=== PATIENT | male | born 1990 | race Caucasian/White ===

== ENCOUNTER 2022-05-11 06:35 | Day surgery (SDC) | payer OTHER ==
[2022-05-11 07:20] VITALS: BMI 25.7
[2022-05-11] MEDS ORDERED: ONDANSETRON 4 MG/2 ML VIAL IVPUSH PRN (09:33)
[2022-05-11] MEDS ORDERED: oxyCODONE HCL 5 MG TABLET PO PRN (09:33)
[2022-05-11] MEDS ORDERED: PROMETHAZINE HCL 25 MG/1 ML VIAL IVPUSH PRN (09:33)
[2022-05-11 09:35] LABS: ALBUMIN 3.9 g/dl (3.4-5.0); BILIRUBIN,TOTAL 0.6 mg/dl (0.2-1); CALCIUM 9.2 mg/dl (8.5-10); CREATININE 0.8 mg/dl (0.55-1.3); TOT PROT 6.9 g/dl (6.4-8.2)
[2022-05-11] MEDS ORDERED: LACTATED RINGERS SOLUTION 1,000 ML IV SCH (09:45)
[2022-05-11] MEDS ORDERED: PROPOFOL 20 ML ONE ×2 (10:28→14:07)
[2022-05-11] MEDS ORDERED: MIDAZOLAM HCL 2 MG/2 ML SINGLE DOSE VIAL ONE (10:28)
[2022-05-11] MEDS ORDERED: ROCURONIUM BROMIDE 50 MG/5 ML SYRINGE ONE (10:28)
[2022-05-11] MEDS ORDERED: GLYCOPYRROLATE 0.2 MG/1 ML VIAL ONE ×2 (10:29→14:08)
[2022-05-11] MEDS ORDERED: ceFAZolin SODIUM 1 GM VIAL ONE (10:30)
[2022-05-11] MEDS ORDERED: SODIUM CHLORIDE 0.9% P/F 10 ML VIAL IJ ONE (10:30)
[2022-05-11] MEDS ORDERED: LIDOCAINE HCL/PF 2% SDV 5ML VIAL ONE (10:30)
[2022-05-11] MEDS ORDERED: DEXAMETHASONE SOD PHOSPHATE 4 MG/1 ML VIAL ONE (11:40)
[2022-05-11] MEDS ORDERED: ONDANSETRON 4 MG/2 ML VIAL ONE (11:40)
[2022-05-11] MEDS ORDERED: BUPIVACAINE HCL/EPINEPHRINE/PF 30 ML VIAL IJ ONE (11:58)
[2022-05-11] MEDS ORDERED: TRANEXAMIC ACID 1000 MG/10 ML VIAL ONE ×2 (12:19→14:20)
[2022-05-11] MEDS ORDERED: KETOROLAC TROMETHAMINE 30 MG/1 ML VIAL ONE (13:05)
[2022-05-11 13:06] LABS: ACTIVATED PTT 31.7 SECONDS (25.2-36.5); INR 0.97 (0.83-1.09); PROTHROMBIN TIME (PATIENT) 11.1 SEC (9.7-13.0)
[2022-05-11 13:17] LABS: HEMATOCRIT 42.7 % (35.4-49); HEMOGLOBIN 14.8 G/dL (11.7-16.9); MCH 33.2 pg (25.7-33.7); MCHC 34.6 g/dl (32.0-35.9); MEAN CELL VOLUME 95.7 fl (80-96); MEAN PLT VOLUME 7.6 fl (7.5-11.1); PLATELET COUNT 265.8 10^3/uL (134-434); RBC 4.46 10^6/uL (4.00-5.60); RDW 13.4 % (11.9-15.9); WHITE BLOOD COUNT 7.9 10^3/uL (4.0-10.8)
[2022-05-11] MEDS ORDERED: VANCOMYCIN 1,000 MG VIAL (RESTRICTED TO ID ONLY) ONE (13:38)
[2022-05-11] MEDS ORDERED: NEOSTIGMINE METHYLSULFATE 0.5 MG/1 ML - 10 ML MDV ONE (14:08)
[2022-05-11] MEDS ORDERED: METOPROLOL TARTRATE 5 MG/5 ML VIAL ONE (14:27)
[2022-05-11] MEDS ORDERED: LIDOCAINE HCL 2% (20ML MULTI-DOSE VIAL) ONE (15:02)
[2022-05-11 17:22] VITALS: BP 133/67; PULSE 63; RESP 19; TEMP 98.8
== END 2022-05-11 17:22 | disposition home or self-care (01) ==
LOC: EDBD → FER 06:35 → FASUSAT 11:12 → FM/S 11:14 → FASUSAT 17:22
PROVIDERS: ATTEND Emergency Medicine
PROC: 0PSB04Z Reposition Left Clavicle with Internal Fixation Device, Open Approach (ICD-10-PCS; principal; 2022-05-11 12:15)
DX: S42.022A Displaced fracture of shaft of left clavicle, initial encounter for closed fracture (principal); X58.XXXA Exposure to other specified factors, initial encounter; Y93.9 Activity, unspecified; Y92.9 Unspecified place or not applicable
CPT/HCPCS: 0241U-QW; 36415; 73000-TC-LT-FY; 80053; 85027; 85610; 85730; 86850; 86900; 86901; 93005; 94760; 99285-25; C1713